=== PATIENT | male | born 1945 | race Caucasian/White ===

== ENCOUNTER → 2018-10-14 | Outpatient (CLI) | payer OTHER ==
[~2018-10-14] MED LIST: AEC81 PO; ATEN25TA PO; ATEN50TA PO; ATOR40TA71 PO; BACL5TAB PO; CILO100T PO; GABA600T10 PO; OMEP20CA10 PO; RAMI10CA69 PO; TRAM50TA4 PO
== END | disposition home or self-care (01) ==
LOC: RAH 11:25
PROVIDERS: ATTEND Internal Medicine
DX: M47.22 Other spondylosis with radiculopathy, cervical region (principal); M48.02 Spinal stenosis, cervical region; M54.32 Sciatica, left side
CPT/HCPCS: 72040

== ENCOUNTER → 2020-01-06 | Outpatient (CLI) | payer OTHER ==
[~2020-01-06] MED LIST changes: -OMEP20CA10 PO; +OMEP20CA12 PO
== END | disposition home or self-care (01) ==
LOC: RAH 09:18
PROVIDERS: ATTEND Internal Medicine
DX: K80.20 Calculus of gallbladder without cholecystitis without obstruction (principal); K76.0 Fatty (change of) liver, not elsewhere classified; R16.0 Hepatomegaly, not elsewhere classified
CPT/HCPCS: 76705

== ENCOUNTER → 2022-03-08 | Outpatient (CLI) | payer OTHER ==
[~2022-03-08] MED LIST changes: -CILO100T PO; +CILO100T3 PO
== END | disposition home or self-care (01) ==
LOC: SHCH 10:40
PROVIDERS: ATTEND Internal Medicine Cardiovascular Disease
DX: R09.89 Other specified symptoms and signs involving the circulatory and respiratory systems (principal)
CPT/HCPCS: 93880

== ENCOUNTER → 2022-07-03 | Outpatient (CLI) | payer OTHER ==
[~2022-07-03] MED LIST changes: +IOHEXOL-350 50ML VIAL IV ONE
== END | disposition home or self-care (01) ==
LOC: RAH 08:42
PROVIDERS: ATTEND Internal Medicine Cardiovascular Disease
DX: K80.20 Calculus of gallbladder without cholecystitis without obstruction (principal); N28.1 Cyst of kidney, acquired; R16.1 Splenomegaly, not elsewhere classified; I70.3 Atherosclerosis of unspecified type of bypass graft(s) of the extremities
CPT/HCPCS: 75635; Q9967

== ENCOUNTER 2022-09-18 09:19 | Observation (INO) | payer OTHER ==
[2022-09-16 09:44] LABS: BASOPHILS % (AUTO) 1.2 % (0.0-5.0); EOSINOPHILS % (AUTO) 1.6 % (0.0-8.0); HEMATOCRIT 37.1 % (42-54); LYMPHOCYTES % (AUTO) 22.3 % (21.0-51.0); MEAN CORPUSCULAR HEMOGLOBIN 32.2 pg (27.0-33.0); MEAN CORPUSCULAR HGB CONC 31.8 g/dL (32.0-36.0); MEAN CORPUSCULAR VOLUME 101.4 fL (79-99); MONOCYTES % (AUTO) 15.4 % (3.0-13.0); NEUTROPHILS % (AUTO) 59.3 % (40.0-77.0); PLATELET COUNT (AUTO) 128 K/uL (130-400); RED BLOOD CELL COUNT(AUTO) 3.66 MIL/uL (4.50-6.20); RED CELL DISTRIBUTION WIDTH 14.7 % (11.0-15.5); WHITE BLOOD COUNT (AUTO) 5.7 K/uL (4.8-10.8)
[2022-09-16 09:53] VITALS: BP 170/68
[2022-09-16 09:54] LABS: APPEARANCE,URINE CLEAR (CLEAR); BILIRUBIN,URINE NEGATIVE (NEGATIVE); COLOR,URINE LIGHT-YELLOW (YELLOW); GLUCOSE, URINE (UA) TRACE mg/dL (NEGATIVE); KETONES,URINE NEGATIVE (NEGATIVE); LEUKOCYTE ESTERASE ,URINE NEGATIVE Leu/uL (NEGATIVE); NITRATE,URINE NEGATIVE (NEGATIVE); OCCULT BLOOD,URINE NEGATIVE (NEGATIVE); PROTEIN,URINE NEGATIVE (NEGATIVE); UROBILINOGEN,URINE 0.2 mg/dL (0.2-1.0)
[2022-09-16 09:55] LABS: CREATININE 0.9 mg/dL (0.5-1.5); POTASSIUM 3.9 mmol/L (3.5-5.1)
[2022-09-16 09:56] LABS: INR 1.09 (0.85-1.15); PROTHROMBIN TIME 11.8 SEC (9.6-11.6)
[2022-09-16 09:57] LABS: PARTIAL THROMBOPLASTIN TIME 27.1 SEC (26.3-35.5)
[2022-09-16 10:08] LABS: B-TYPE NATRIURETIC PEPTIDE 41 pg/mL (0-100)
[2022-09-16 10:10] LABS: BACTERIA,URINE RARE /HPF (None Seen); RBC,URINE 0-1 /HPF (0-1); SQUAMOUS EPITHELIAL CELL,UR RARE /HPF (0-2); WBC,URINE 0-1 /HPF (0-1)
[~2022-09-18] VITALS: Ht 177.8 cm; Wt 77.7 kg
[2022-09-18] VITALS (23 sets, daily range): BP systolic 126–149; BP diastolic 52–70
[~2022-09-18 09:19] MED LIST changes: +AMLO5TAB4 PO; -ATOR40TA71 PO; -BACL5TAB PO; -CILO100T3 PO; +CLOP75TA32 PO; -GABA600T10 PO; -IOHEXOL-350 50ML VIAL IV ONE; +NITR0.4T50 SL; -OMEP20CA12 PO; +PANT40GR PO; +PHARMACY COMMUNICATION MISC SCH; -TRAM50TA4 PO
[2022-09-18] MEDS ORDERED: 0.9%NACL 1000ML 1,000 ML IV ONE (10:55)
[2022-09-18] MEDS ORDERED: HEPARIN 10,000 UNIT/10ML (1,000 UNIT/ML) VIAL ONE (16:00)
[2022-09-18] MEDS ORDERED: NITROGLYCERIN 50MG VIAL ONE (16:00)
[2022-09-18] MEDS ORDERED: IODIXANOL 320 MG/ML 100 ML VIAL ONE ×2 (16:00→17:16)
[2022-09-18] MEDS ORDERED: SODIUM BICARB 50MEQ 50ML VIAL 50 ML ONE (16:00)
[2022-09-18] MEDS ORDERED: LIDOCAINE HCL 400MG/20ML VIAL ONE (16:00)
[2022-09-18] MEDS ORDERED: PROPOFOL 10 MG/ML 20ML VIAL IV ONE (16:11)
[2022-09-18] MEDS ORDERED: ROCURONIUM 10MG/1ML SYR 10 MG/ML ML ONE (16:11)
[2022-09-18] MEDS ORDERED: ONDANSETRON 4MG INJ ONE (16:11)
[2022-09-18] MEDS ORDERED: MIDAZOLAM HCL 1 MG/ML 2ML VIAL ONE (16:11)
[2022-09-18] MEDS ORDERED: FENTANYL CITRATE PF 50 MCG/1 ML 2ML VIAL ONE ×2 (16:12→18:14)
[2022-09-18] MEDS ORDERED: ACETAMINOPHEN 325 MG TAB PO PRN (18:00)
[2022-09-18] MEDS ORDERED: 0.9%NACL 1000ML 1,000 ML IV SCH (18:00)
[2022-09-18] MEDS ORDERED: MORPHINE 4 MG SYG IVP SCH (18:00)
[2022-09-18] MEDS ORDERED: ONDANSETRON 4MG INJ IVP PRN (18:00)
[2022-09-18] MEDS ORDERED: ONDANSETRON 4MG INJ IVP SCH (18:00)
[2022-09-18] MEDS: ATORVASTATIN 40 MG TABLET PO SCH ×2 (23:56→23:59)
[2022-09-18] MEDS: ATENOLOL 25 MG TABLET PO SCH (23:57)
[2022-09-19 03:26] VITALS: BP 139/62
[2022-09-19 03:43] LABS: HEMATOCRIT 35.1 % (42-54); MEAN CORPUSCULAR HEMOGLOBIN 32.3 pg (27.0-33.0); MEAN CORPUSCULAR HGB CONC 32.5 g/dL (32.0-36.0); MEAN CORPUSCULAR VOLUME 99.4 fL (79-99); RED BLOOD CELL COUNT(AUTO) 3.53 MIL/uL (4.50-6.20); RED CELL DISTRIBUTION WIDTH 14.7 % (11.0-15.5); WHITE BLOOD COUNT (AUTO) 5.8 K/uL (4.8-10.8)
[2022-09-19 04:04] LABS: CREATININE 0.9 mg/dL (0.5-1.5); POTASSIUM 4.2 mmol/L (3.5-5.1)
[2022-09-19 08:01] VITALS: BP 158/62
[2022-09-19] MEDS: ATENOLOL 25 MG TABLET PO SCH (08:28)
[2022-09-19 12:34] VITALS: BP 149/66
== END 2022-09-19 13:39 | disposition home or self-care (01) ==
LOC: DAH 09:19 → DAHIP 09:20 → 2DH 18:27
PROVIDERS: ADMIT Internal Medicine; ATTEND Internal Medicine
DX: I73.9 Peripheral vascular disease, unspecified (principal); I25.10 Atherosclerotic heart disease of native coronary artery without angina pectoris; I72.3 Aneurysm of iliac artery; I74.5 Embolism and thrombosis of iliac artery; Z79.899 Other long term (current) drug therapy
CPT/HCPCS: 80048 ×2; 83880; 85025; 85610; 85730 ×2; 81001; 36415 ×3; 71045; 93005; 37221; 37226; 82948; 85027; C1769 ×3; C1894; C1893; C1725; C1876 ×3; G0378 ×20; J3010 ×2; J3490 ×3; J7030; J1644 ×2; J2250; J2704; J2405; Q9967 ×2; A4215; A4223 ×3; A4222; A4221; A4663; A4216; A4606; 75716

== ENCOUNTER → 2022-12-22 | Outpatient (CLI) | payer OTHER ==
[~2022-12-22] MED LIST changes: +IOHEXOL 350 MG/ML 100ML INFUS..BTL IV ONE; -PHARMACY COMMUNICATION MISC SCH
== END | disposition home or self-care (01) ==
LOC: RAH 09:20
PROVIDERS: ATTEND Internal Medicine Cardiovascular Disease
DX: K80.20 Calculus of gallbladder without cholecystitis without obstruction (principal); I71.40 Abdominal aortic aneurysm, without rupture, unspecified; K57.30 Diverticulosis of large intestine without perforation or abscess without bleeding
CPT/HCPCS: 74174; Q9967

== ENCOUNTER → 2024-07-26 | Outpatient (CLI) | payer OTHER ==
[~2024-07-26] MED LIST changes: -IOHEXOL 350 MG/ML 100ML INFUS..BTL IV ONE; -RAMI10CA69 PO; +RAMI10CA76 PO
--- NOTE | 2024-07-27 09:35 | HMCSR ---
APPROVED REPORT EXAM: Two-dimensional and M-mode echocardiogram with Doppler and color Doppler. 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 2D Dimensions RVDd4.0 cmLVEF(%)65.8 (>50%)LVED Vol(simp.)116.0 mL IVSd0.9 (0.7-1.1cm)FS(%)36 %LVES Vol(simp.)43.0 mL LVDd5.3 (3.8-5.6cm)LA (2D)3.8 (1.6-4.0cm)LVEF(%, simp.)63 % PWd1.0 (0.7-1.1cm)Ao Root(2D)3.2 (2.0-3.7cm)LA ESV INDEX (BP)35.32 mL/m2 LVDs3.3 (2.5-4.0cm)LVOT diam2.0 (1.8-2.4cm) IVC diam1.0 cm Aortic Valve AoV Vmax1.4 m/Yamel Peak GR8.2 mmHgLVOT Vmax1.2 m/s AoV VTI0.3 mAo Mean GR4.0 mmHgLVOT VTI0.28 m WILLIMA (VMAX)2.9 cm2AVA (VTI) 2.9 cm2 Mitral Valve MV E Eujb488.8 cm/sDECEL Mjfe592 ms MV A Aisa060.3 cm/s E/A ratio1.3 MR Max PG103 mmHg TDI E/E' Ubiuzc29.9 Pulmonary Valve PV Vmax1.1 m/sPV VTI0.28 mPV Mean GR3 mmHg PV Peak GR5.2 mmHg Tricuspid Valve TR Vmax2.8 m/sRAP (EST) 3 eoGnNYMN99.9 mmHg TR Peak GR31.9 mmHg Left Ventricle Left ventricular cavity size is normal. There is normal left ventricular wall thickness. LVEF is 55%. No left ventricle thrombus noted on this study. Grade 2 diastolic dysfunction. Right Ventricle The right ventricle is normal size. The right ventricular systolic function is normal. Atria The left atrium is mildly dilated. The right atrium size is normal. Aortic Valve Aortic valve is trileaflet. Aortic valve leaflets are sclerotic but open well. Trace aortic regurgita tion. There is no aortic valvular stenosis. Mitral Valve The mitral valve is mildly thickened. Mitral annular calcification is mild. Mitral regurgitation is m ild. There is no mitral valve stenosis. Tricuspid Valve The tricuspid valve leaflets appear normal. There is trace to mild tricuspid regurgitation. Right chi tricular systolic pressure is estimated at 30-40 mmHg. Pulmonic Valve Pulmonic valve is not well visualized. There is trace pulmonic valvular regurgitation. Great Vessels The aortic root is normal in size. The IVC is normal in size and collapses >50% with inspiration. Pericardium No pericardial effusion. Conclusion Left ventricular cavity size is normal. LVEF is 55%. Grade 2 diastolic dysfunction. The right ventricle is normal size. The left atrium is mildly dilated. Aortic valve is trileaflet. Aortic valve leaflets are sclerotic but open well. Trace aortic regurgitation. The mitral valve is mildly thickened. Mitral annular calcification is mild. Mitral regurgitation is mild. There is trace to mild tricuspid regurgitation. Right ventricular systolic pressure is estimated at 30-40 mmHg. The aortic root is normal in size. The IVC is normal in size and collapses >50% with inspiration. No pericardial effusion.
== END | disposition home or self-care (01) ==
LOC: SHCH 07:46
PROVIDERS: ATTEND Internal Medicine Cardiovascular Disease
DX: I08.3 Combined rheumatic disorders of mitral, aortic and tricuspid valves (principal); I25.10 Atherosclerotic heart disease of native coronary artery without angina pectoris
CPT/HCPCS: 93306

== ENCOUNTER → 2024-07-29 | Outpatient (CLI) | payer OTHER ==
[2024-07-29] MEDS: REGADENOSON 0.4 MG/5 ML PF SYG IVP ONE (13:57)
== END | disposition home or self-care (01) ==
LOC: SHCH 07:36
PROVIDERS: ATTEND Internal Medicine Cardiovascular Disease
DX: I25.10 Atherosclerotic heart disease of native coronary artery without angina pectoris (principal); R06.00 Dyspnea, unspecified
CPT/HCPCS: 78452; 93017; J2785; A9500 ×2